=== PATIENT | female | born 1955 | race Caucasian/White ===

== ENCOUNTER 2016-11-28 10:38 | Outpatient (CLI) | payer BC, OTHER ==
--- NOTE | 2016-11-28 11:32 | DIAGNOSTIC IMAGING REPORT ---
PROCEDURE: DEXA BONE DENSITY STUDY CLINICAL INDICATION: OSTEOPOROSIS COMPARISON: DEXA scan 08/25/2014 FINDINGS: LUMBAR SPINE: Bone mineral density 0.789, T-score -2.3, osteopenia (previously bone mineral density 0.764, T-score -2.6, 3.2% bone mineral density increase). LEFT HIP: Bone mineral density 0.721, T-score -1.8, osteopenia (previously bone mineral density 0.700, T-score -2.0, 3% bone mineral density increase). LEFT FEMORAL NECK: Bone mineral density 0.602, T-score -2.2, osteopenia (previously bone mineral density 0.570, T-score -2.5, 5.6% bone mineral density increase). (T score greater or equal to -1.0 to: NORMAL) (T score from -1.1 to -2.4: OSTEOPENIA) (T score ess than or equal to -2.5: OSTEOPOROSIS) IMPRESSION: 1. Lumbar spine osteopenia with 3.2% bone mineral density increase 2. Left hip osteopenia with femoral neck 5.6% bone mineral density increase 3. 10-year fracture risk: Major osteoporotic fracture 10%, hip fracture 1.6%.
--- NOTE | 2016-11-28 12:11 | DIAGNOSTIC IMAGING REPORT ---
PROCEDURE: XR UPPER GI WITH AIR INDICATION: Heartburn. Possible reflux. TECHNIQUE: Double contrast study. Fluoroscopy time, 4.0 minutes; by 1477.76 mGy. 47 fluoroscopic images (including cinefluoroscopy). COMPARISON: None. FINDINGS: Pharyngoesophagus is normal. There is moderate gastroesophageal reflux. There is mild thickening esophageal folds with mild tertiary contractions. No evidence of hiatal hernia. Stomach and duodenum are normal. IMPRESSION: 1. Moderate gastroesophageal reflux. 2. Mild thickening of the esophageal folds with tertiary contractions of the esophagus compatible with reflux esophagitis and esophageal spasm. 3. No evidence of hiatal hernia. 4. Otherwise negative upper GI. 5. Findings discussed with the patient. 6. Findings called to Jennifer Neves PAC.
[2017-02-19] MEDS ORDERED: OMEPRAZOLE20 M1 PO (18:19)
[2017-02-19] MEDS ORDERED: LOSARTAN POTASS25 MG PO (18:19)
[2017-02-19] MEDS ORDERED: HYDROCHLOROTHIA25 MG PO (18:19)
[2017-02-19] MEDS ORDERED: LORATADINE10 MG PO (18:27)
[2017-02-19] MEDS ORDERED: FLONASE AL50 MCG/ACT (18:27)
== END 2016-11-28 23:00 ==
LOC: XR SRH 10:38
DX: M85.89 Other specified disorders of bone density and structure, multiple sites (principal); K21.0 Gastro-esophageal reflux disease with esophagitis; K22.4 Dyskinesia of esophagus; M81.0 Age-related osteoporosis without current pathological fracture

== ENCOUNTER 2017-02-24 06:08 | Day surgery (SDC) | payer BC, OTHER ==
[~2017-02-24] VITALS: Ht 160 cm; Wt 58.1 kg
[~2017-02-24 06:08] MED LIST: FLONASE AL50 MCG/ACT; HYDROCHLOROTHIA25 MG PO; LORATADINE10 MG PO; LOSARTAN POTASS25 MG PO; OMEPRAZOLE20 M1 PO
--- NOTE | 2017-02-24 07:57 | Provider's Discharge Care Plan ---
Problem, Goal, Plan Problem List 1. S/P EGD Goals: Screening Instructions: Follow up as directed, Take meds as directed
--- NOTE | 2017-02-24 07:57 | Provider's Discharge Care Plan ---
Problem, Goal, Plan Problem List 1. S/P EGD Goals: Screening Instructions: Follow up as directed, Take meds as directed
--- NOTE | 2017-02-24 08:06 | Operative Report ---
Operative Report Date of Surgery: 02/24/17 Preoperate Diagnosis: gastroesophageal reflux Postoperative Diagnosis: gastroesophageal reflux Surgeon: Jeff Coffey MD [employer] Surgeon: none Procedure Performed: Upper GI endoscopy with gastric mucosal and. 2 mucosal biopsies Anesthesia: Total intravenous anesthesia; posterior pharynx Cetacaine spray Indications: 61-year-old female recently underwent an upper GI series. He indicates model moderate reflux, thickening of the esophagus consistent with reflux. FINDINGS: Normal appearing duodenum and duodenal bulb. The gastric mucosa appeared grossly normal. The EG junction was proximal to 37 centimeters from the dental incisors. No gross evidence of inflammatory changes of the esophagus. Surgical Technique: Patient brought to the operating room placed in the left lateral decubitus position. Patient was administered total intravenous anesthesia.. Once anesthesia taken effect, the posterior pharynx was sprayed using Cetacaine spray. An Olympus fiberoptic video upper GI endoscope was passed into the patient's posterior pharynx. The esophagus intubated under direct visualization. The scope passed easily down the esophagus through the EG junction, which was located approximately 37 cm from the dental incisors. The scope passed easily through the EG junction into the gastric lumen and eventually into the second third portion of duodenum. On withdrawing the scope the afore mentioned findings noted. The scope was withdrawn into the gastric lumen and retroflexed. Good view of the cardia, fundus, EG junction from below, and greater and lesser curvature. Multiple random biopsies were obtained of the gastric mucosa to rule out H. pylori. The scope was withdrawn to the EG junction. Multiple random biopsies were obtained of the distal esophagus to rule out Fisher's esophagus. The scope was then completely withdrawn. Patient tolerated procedure well. Patient was transferred to the recovery room in stable condition. There were no intraoperative or anesthetic complications.
[2017-02-24 09:21] VITALS: BP 156/87
== END 2017-02-24 09:18 | disposition home or self-care (01) ==
LOC: SCU SRH 06:08 → OR SRH 06:08
PROVIDERS: Specialist
PROC: 0DB38ZX Excision of Lower Esophagus, Via Natural or Artificial Opening Endoscopic, Diagnostic (ICD-10-PCS; principal; 2017-02-24 07:30)
PROC: 0DB68ZX Excision of Stomach, Via Natural or Artificial Opening Endoscopic, Diagnostic (ICD-10-PCS; principal; 2017-02-24 07:30)
DX: K21.9 Gastro-esophageal reflux disease without esophagitis (principal); D64.9 Anemia, unspecified; I10 Essential (primary) hypertension
CPT/HCPCS: 29229; 29240; 50004; 60001; 82943; 83125; 83526; 90705